=== PATIENT | male | born 1970 | race Caucasian/White ===

== ENCOUNTER 2024-04-17 15:25 | Emergency (ER) | payer OTHER, SELFPAY ==
[2024-04-17 15:34] VITALS: BP 148/91; PULSE 103; RESP 20; TEMP 37.4; O2SAT 96
--- NOTE | 2024-04-17 16:04 | ED.URI ---
HPI - URI/Sore Throat General Chief Complaint: Upper Respiratory Infection Stated Complaint: covid test Time Seen by Provider: 04/17/24 15:50 Source: patient Mode of arrival: ambulatory Limitations: no limitations History of Present Illness HPI Narrative: 53-year-old male presents with complaint of nasal congestion, sore throat, cough, intermittent headaches for the past 5 days. Afebrile. Reports fatigue. No chest pain or shortness of breath. Patient concerned for COVID. Did not do a home test. Taking Sudafed and DayQuil NyQuil cold and flu. All systems reviewed and negative except as noted above. Related Data Allergies Allergy/AdvReac Type Severity Reaction Status Date / Time Penicillins Allergy Unknown Rash Unverified 04/17/24 15:53 Review of Systems Review of Systems: CONSTITUTIONAL: Denies fever, chills, or sweats. EYES: Denies visual changes, redness, or discharge. ENT: Reports rhinorrhea, congestion, sore throat. Denies otalgia. CARDIOVASCULAR: Denies chest pain, palpitations, or edema. RESPIRATORY: Reports cough. Denies dyspnea. GASTROINTESTINAL: Denies abdominal pain, nausea, vomiting, or diarrhea. GENITOURINARY: Denies dysuria or hematuria. SKIN: Denies rash or itching. MUSCULOSKELETAL: Denies back pain, joint pain, or myalgia. NEUROLOGIC: Denies headache, numbness, or weakness. PSYCHIATRIC: Denies anxiety or depression. All other systems reviewed are negative, except as documented in HPI. PMFSH Comments At time of signature, agree with nursing past medical, surgical, social and family history. There is no relevant family history pertinent to the presenting complaint. Exam Narrative: GENERAL: This is a well-nourished, well-developed patient, patient ill-appearing but no acute distress. HEAD: normocephalic, atraumatic. EYES: PERRL. Sclera clear/white. Vision is grossly intact. EARS: External ears normal, auditory canals clear and without drainage, TMs normal without perforation. Hearing grossly intact. NOSE: External nose normal with mild congestion with erythema and swelling to bilateral nares THROAT: Mucous membranes moist, erythematous with postnasal drainage. No significant swelling or exudates. NECK: Neck supple, non-tender without lymphadenopathy, masses or thyromegaly. CARDIOVASCULAR: Regular rate and rhythm without murmurs, gallops, or rubs. RESPIRATORY: Clear to auscultation. Breath sounds equal bilaterally. No wheezes, rales, or rhonchi. SKIN: warm, Dry, intact with no suspicious lesions or rash, good texture and turgor. NEURO: awake, alert, and oriented to person, place and time. There were no obvious focal neurologic abnormalities. EXTREMITIES: No joint tenderness, effusion, or edema noted. Course Course Level of Care: Express Care Visit Vital Signs Vital signs: Vital Signs Temperature 37.4 C 04/17/24 15:34 Pulse Rate 103 H 04/17/24 15:34 Respiratory Rate 20 04/17/24 15:34 Blood Pressure 148/91 H 04/17/24 15:34 Pulse Oximetry 96 04/17/24 15:34 Oxygen Delivery Room Air 04/17/24 15:34 Temperature 37.4 C 04/17/24 15:34 Pulse Rate 103 H 04/17/24 15:34 Respiratory Rate 20 04/17/24 15:34 Blood Pressure 148/91 H 04/17/24 15:34 Pulse Oximetry 96 04/17/24 15:34 Oxygen Delivery Room Air 04/17/24 15:34 Reviewed MDM - URI/Sore Throat MDM Narrative Medical decision making narrative: Positive COVID test. Patient is nontoxic. Clear to auscultation. Patient is aware of diagnosis, understands and agrees to treatment plan. Anticipatory guidance given. Patient agrees to follow-up as directed and is aware of reasons to seek care at the emergency department. Portions of this record may have been created with voice recognition software Differential Diagnosis Differential diagnosis: Likely upper respiratory infection, viral infection, influenza and other (COVID) Lab Data Labs: Lab Results 04/17/24 Range/Units 15:35 POC SARS CoV-2 Ag
== END 2024-04-17 16:00 | disposition home or self-care (01) ==
PROVIDERS: Emergency Provider Nurse Practitioner Family
DX: U07.1 COVID-19 (principal)
CPT/HCPCS: 87426; 99203; G0463